=== PATIENT | male | born 1995 | race Caucasian/White ===

== ENCOUNTER 2018-09-24 12:31 | Emergency (ER) | payer MEDICAID ==
[~2018-09-24] VITALS: Ht 175.3 cm; Wt 78.0 kg
[2018-09-24 12:36] VITALS: BP 120/70
[2018-09-24] MEDS ORDERED: INSU100I28 SQ (12:41)
== END 2018-09-24 15:58 | disposition left against medical advice (07) ==
LOC: ER 14:05
DX: M54.5 Low back pain (principal); R00.0 Tachycardia, unspecified
CPT/HCPCS: 99283

== ENCOUNTER 2018-10-08 13:58 | Inpatient (IN) | payer MEDICAID ==
[~2018-10-08] VITALS: Ht 167.6 cm; Wt 48.5 kg
[~2018-10-08 13:58] MED LIST: INSU100I28 SQ
[2018-10-08] MEDS ORDERED: SODIUM CHLORIDE 0.9% 1,000 ML IV ONE (15:14)
[2018-10-08] MEDS ORDERED: DEXTROSE 50% WATER 50ML SYRINGE IV ONE ×4 (15:15→21:30)
[2018-10-08] MEDS ORDERED: SODIUM CHLORIDE 0.9% 1000ML BAG (SEPSIS BOLUS) IV ONE (16:00)
[2018-10-08 16:28] LABS: BASOPHILS % 0.2 % (0.0-2.0); HEMATOCRIT. 26.2 % (42.0-52.0); HEMOGLOBIN. 8.9 g/dL (14.0-18.0); LYMPHOCYTES % 7.2 % (20.0-50.0); MEAN CORPUSCULAR HEMOGLOBIN 28.9 pg (28.0-32.0); MEAN CORPUSCULAR VOLUME 84.9 fL (80.0-94.0); MEAN PLATELET VOLUME 6.4 fl (7.4-10.4); MONOCYTES % 4.8 % (2.0-8.0); NEUTROPHILS % 87.8 % (40.0-76.0); PLATELET 359 x1000/uL (130-400); RED BLOOD CELL COUNT 3.08 mill/uL (4.7-6.1); RED CELL DISTRIBUTION WIDTH 13.6 % (11.6-14.6)
[2018-10-08 16:30] LABS: BG BASE EXCESS 0.3 mmol/L (-2.0-2.0); BG CARBOXYHEMOGLOBIN 0.3 % (0.5-1.5); BG DEOXYHEMOGLOBIN 1.8 % (0.0-5.0); BG FRACTION INSPIRED OXYGEN 21; BG METHEMOGLOBIN 0.3 % (0.0-1.5); BG OXYGEN SATURATION 98.2 % (92.0-98.5); BG OXYHEMOGLOBIN 97.6 % (94.0-97.0); BG PCO2 35.1 mmHg (35.0-45.0); BG PH 7.453 (7.350-7.450); BG PO2 125.3 mmHg (75.0-100.0); BG SAMPLE SITE LEFT BRACHIAL; BG TOTAL HEMOGLOBIN 9.7 g/dL (12.0-18.0); BG VENT MODE ROOM AIR
[2018-10-08 16:33] LABS: INR 1.4; PROTHROMBIN TIME 13.9 sec (9.1-11.1)
[2018-10-08 16:35] LABS: CHLORIDE 99 mEq/L (98-107)
[2018-10-08 16:42] LABS: ETHANOL BLOOD < 10 mg/dL
[2018-10-08 16:46] LABS: CREATINE KINASE 40 IU/L (39-308)
[2018-10-08] MEDS ORDERED: KCL 10MEQ/50ML PREMIX 50 ML IV ONE (17:15)
[2018-10-08] MEDS ORDERED: MAGNESIUM 2 G PREMIX 50 ML IV ONE (17:15)
[2018-10-08] MEDS ORDERED: VANCOMYCIN 1 G PREMIX 200 ML IV SCH (18:00)
[2018-10-08] MEDS ORDERED: PIPERACILLIN/TAZOBACTAM 3.375GM/50ML PREMIX IV ONE (18:00)
[2018-10-08] MEDS ORDERED: PIPERACILLIN/TAZ 3.375G PREMIX 50 ML IV NR (23:00)
[2018-10-09] VITALS (17 sets, daily range): BP systolic 85–123; BP diastolic 58–91
[2018-10-09] MEDS ORDERED: DIPH1TAB24 PO (01:42)
[2018-10-09] MEDS ORDERED: BACL-141 PO (01:42)
[2018-10-09] MEDS ORDERED: IOHEXOL-300 100 ML BOTTLE ONE (02:10)
[2018-10-09] MEDS ORDERED: DEXT 5%/0.45% NACL 1000ML 1,000 ML IV SCH (02:30)
[2018-10-09] MEDS ORDERED: DEXTROSE 50% WATER 50ML SYRINGE IV SCH (02:30)
[2018-10-09] MEDS: DEXTROSE 50% WATER 50ML SYRINGE IV PRN ×3 (03:55→11:10)
[2018-10-09] MEDS ORDERED: IPRATROPIUM/ALBUTEROL 0.5-3(2.5)MG/3ML NEB INH PRN (08:45)
[2018-10-09] MEDS ORDERED: CLONIDINE 0.1MG TABLET PO PRN (08:45)
[2018-10-09] MEDS ORDERED: ONDANSETRON HCL 4MG/2ML INJ IV PRN (08:45)
[2018-10-09] MEDS ORDERED: DIPHENHYDRAMINE 50MG/ML VIAL IV PRN (08:45)
[2018-10-09] MEDS ORDERED: ACETAMINOPHEN 325MG TABLET PO PRN (08:45)
[2018-10-09] MEDS ORDERED: MAGNESIUM/ALUMINUM HYDROXIDE/SIMETHICONE 30ML UDC PO PRN (08:45)
[2018-10-09] MEDS ORDERED: HYDROCODONE/ACETAMINOPHEN 5/325MG TABLET PO PRN (08:45)
[2018-10-09] MEDS ORDERED: VANCOMYCIN 1 G PREMIX 200 ML IV SCH (10:30)
[2018-10-09] MEDS ORDERED: DEXT 10% WATER 1,000 ML IV SCH ×2 (11:00→11:07)
[2018-10-09] MEDS ORDERED: LIDOCAINE HCL 1% 20ML VIAL (Pyxis) INJ ONE (11:22)
[2018-10-09 12:01] LABS: HEMATOCRIT 24.3 % (42.0-52.0); HEMOGLOBIN 8.3 g/dL (14.0-18.0); MEAN CORPUSCULAR HEMOGLOBIN 28.7 pg (28.0-32.0); MEAN CORPUSCULAR VOLUME 84.4 fL (80.0-94.0); PLATELET 342 x1000/uL (130-400); RED BLOOD CELL COUNT 2.88 mill/uL (4.7-6.1); RED CELL DISTRIBUTION WIDTH 13.8 % (11.6-14.6)
[2018-10-09 12:02] LABS: PHOSPHORUS 2.5 mg/dL (2.5-4.9)
[2018-10-09 12:18] LABS: CHLORIDE 104 mEq/L (98-107)
[2018-10-09] MEDS ORDERED: LIDOCAINE HCL 1% 20ML VIAL (Pyxis) INJ INFIL NR (13:45)
[2018-10-09] MEDS ORDERED: POTASSIUM CHLORIDE INJ 40 MEQ in DEXT 5% WATER 500 ML IV NR (14:30)
[2018-10-09 16:05] LABS: INR 1.4; PARTIAL THROMBOPLASTIN TIME 35.8 sec (23.4-31.0); PROTHROMBIN TIME 14.4 sec (9.1-11.1)
[2018-10-09] MEDS: BLOOD SUGAR DIAGNOSTIC STRIP TEST SCH ×2 (19:59→21:57)
[2018-10-09] MEDS ORDERED: INSULIN LISPRO 100 UNITS/ML SUBCUT SCH (20:00)
[2018-10-09] MEDS: DEXT 5%/0.45% NACL 1000ML 1,000 ML IV SCH (20:02)
[2018-10-09] MEDS: INSULIN LISPRO 100 UNITS/ML SUBCUT SCH (21:00)
[2018-10-09 21:04] LABS: CLARITY URINE CLOUDY (CLEAR); COLOR URINE YELLOW (YELLOW); KETONES URINE NEGATIVE (NEGATIVE); LEUKOCYTE ESTERASE URINE 3+ (NEGATIVE); NITRITE URINE NEGATIVE (NEGATIVE); OCCULT BLOOD URINE 2+ (NEGATIVE); PH URINE 5.5 (4.5-8.0); PROTEIN URINE NEGATIVE (NEGATIVE); SPECIFIC GRAVITY URINE 1.027 (1.005-1.030); UROBILINOGEN URINE 0.2 E.U./dL (0.2-1.0)
[2018-10-09 21:14] LABS: *AMPHETAMINES SCREEN URINE PRESUMTIVE POSITIVE (NEGATIVE); *BARBITURATES SCREEN URINE NEGATIVE (NEGATIVE); *BENZODIAZEPINES SCREEN URINE NEGATIVE (NEGATIVE); *COCAINE SCREEN URINE NEGATIVE (NEGATIVE)
[2018-10-09 21:15] LABS: CANNABINOID URINE SCREEN NEGATIVE (NEGATIVE); METHADONE URINE SCREEN NEGATIVE (NEGATIVE); OPIATES URINE SCREEN NEGATIVE (NEGATIVE); PHENCYCLIDINE URINE SCREEN NEGATIVE (NEGATIVE)
[2018-10-09] MEDS: VANCOMYCIN 1 G PREMIX 200 ML IV SCH (22:06)
[2018-10-09] MEDS ORDERED: MAGNESIUM 2 G PREMIX 50 ML IV NR (23:00)
[2018-10-10] VITALS (33 sets, daily range): BP systolic 80–120; BP diastolic 53–88
[2018-10-10] MEDS: PANTOPRAZOLE SODIUM 40 MG/VIAL IV SCH ×2 (01:03→08:53)
[2018-10-10] MEDS: BLOOD SUGAR DIAGNOSTIC STRIP TEST SCH ×10 (01:14→17:56)
[2018-10-10 01:31] LABS: BASOPHILS % 0.1 % (0.0-2.0); EOSINOPHILS % 0.1 % (0.0-5.0); HEMATOCRIT. 24.9 % (42.0-52.0); HEMOGLOBIN. 8.4 g/dL (14.0-18.0); LYMPHOCYTES % 9.8 % (20.0-50.0); MEAN CORPUSCULAR HEMOGLOBIN 28.4 pg (28.0-32.0); MEAN CORPUSCULAR VOLUME 84.3 fL (80.0-94.0); MEAN PLATELET VOLUME 6.2 fl (7.4-10.4); MONOCYTES % 3.9 % (2.0-8.0); NEUTROPHILS % 86.1 % (40.0-76.0); PLATELET 369 x1000/uL (130-400); RED BLOOD CELL COUNT 2.96 mill/uL (4.7-6.1); RED CELL DISTRIBUTION WIDTH 13.9 % (11.6-14.6)
[2018-10-10] MEDS: VANCOMYCIN 1 G PREMIX 200 ML IV SCH ×3 (05:46→21:47)
[2018-10-10] MEDS: INSULIN LISPRO 100 UNITS/ML SUBCUT SCH ×4 (05:51→21:00)
[2018-10-10] MEDS: DEXT 5%/0.45% NACL 1000ML 1,000 ML IV SCH ×2 (06:45→19:30)
[2018-10-10 08:29] LABS: BASOPHILS % 0.3 % (0.0-2.0); EOSINOPHILS % 0.2 % (0.0-5.0); HEMATOCRIT. 24.1 % (42.0-52.0); HEMOGLOBIN. 8.1 g/dL (14.0-18.0); LYMPHOCYTES % 16.7 % (20.0-50.0); MEAN CORPUSCULAR HEMOGLOBIN 28.6 pg (28.0-32.0); MEAN CORPUSCULAR VOLUME 84.8 fL (80.0-94.0); MEAN PLATELET VOLUME 6.1 fl (7.4-10.4); MONOCYTES % 4.9 % (2.0-8.0); NEUTROPHILS % 77.9 % (40.0-76.0); PLATELET 374 x1000/uL (130-400); RED BLOOD CELL COUNT 2.84 mill/uL (4.7-6.1); RED CELL DISTRIBUTION WIDTH 13.6 % (11.6-14.6)
[2018-10-10 08:40] LABS: CHLORIDE 102 mEq/L (98-107)
[2018-10-10 08:49] LABS: LDL CHOLESTEROL 26 mg/dL (5-100)
[2018-10-10 08:50] LABS: HDL CHOLESTEROL 25 mg/dL (40-59)
[2018-10-10] MEDS: TAMSULOSIN HCL 0.4MG SR CAPSULE PO SCH (10:36)
[2018-10-10] MEDS: FLUCONAZOLE 100MG TABLET PO SCH (10:36)
[2018-10-10 10:58] LABS: PHOSPHORUS 2.2 mg/dL (2.5-4.9)
[2018-10-10] MEDS ORDERED: POTASSIUM CHLORIDE 20MEQ TABLET SR PO NR (11:30)
[2018-10-10] MEDS: SUCRALFATE 1 G/10 ML UDC GT SCH ×3 (12:19→21:46)
[2018-10-10] MEDS ORDERED: MAGNESIUM 2 G PREMIX 50 ML IV NR (13:00)
[2018-10-10] MEDS: NYSTATIN POWDER 15GM TOP SCH ×2 (13:18→17:56)
[2018-10-10] MEDS ORDERED: TETANUS AND DIPHTHERIA TOX/PF 0.5ML SYR (ADULT) IM ONE (17:00)
[2018-10-10] MEDS ORDERED: TETANUS, DIPHTHERIA, PERTUSSIS VAC/PF 0.5ML (>7YR OLD) IM ONE (17:15)
[2018-10-10] MEDS: CEFEPIME 2,000 MG in DEXT 5% WATER 100 ML IV SCH (17:56)
[2018-10-10 18:28] LABS: BASOPHILS % 0.2 % (0.0-2.0); EOSINOPHILS % 0.2 % (0.0-5.0); HEMATOCRIT. 22.8 % (42.0-52.0); HEMOGLOBIN. 7.6 g/dL (14.0-18.0); LYMPHOCYTES % 12.4 % (20.0-50.0); MEAN CORPUSCULAR HEMOGLOBIN 28.3 pg (28.0-32.0); MEAN CORPUSCULAR VOLUME 85.1 fL (80.0-94.0); MONOCYTES % 3.9 % (2.0-8.0); NEUTROPHILS % 83.3 % (40.0-76.0); PLATELET 355 x1000/uL (130-400); RED BLOOD CELL COUNT 2.68 mill/uL (4.7-6.1)
[2018-10-10 18:30] LABS: CHLORIDE 101 mEq/L (98-107)
[2018-10-10 20:21] LABS: PHOSPHORUS 2.5 mg/dL (2.5-4.9)
[2018-10-11] VITALS (79 sets, daily range): BP systolic 82–121; BP diastolic 45–85
[2018-10-11] MEDS: BLOOD SUGAR DIAGNOSTIC STRIP TEST SCH ×8 (02:12→21:15)
[2018-10-11] MEDS: DEXT 5%/0.45% NACL 1000ML 1,000 ML IV SCH (04:09)
[2018-10-11 05:59] LABS: BASOPHILS % 1.1 % (0.0-2.0); EOSINOPHILS % 0.2 % (0.0-5.0); HEMATOCRIT. 21.1 % (42.0-52.0); HEMOGLOBIN. 7.1 g/dL (14.0-18.0); LYMPHOCYTES % 15.9 % (20.0-50.0); MEAN CORPUSCULAR HEMOGLOBIN 28.6 pg (28.0-32.0); MEAN CORPUSCULAR VOLUME 85.3 fL (80.0-94.0); MEAN PLATELET VOLUME 6.3 fl (7.4-10.4); MONOCYTES % 3.8 % (2.0-8.0); PLATELET 343 x1000/uL (130-400); RED BLOOD CELL COUNT 2.47 mill/uL (4.7-6.1); RED CELL DISTRIBUTION WIDTH 14.1 % (11.6-14.6)
[2018-10-11] MEDS: CEFEPIME 2,000 MG in DEXT 5% WATER 100 ML IV SCH (06:00)
[2018-10-11 06:11] LABS: CHLORIDE 105 mEq/L (98-107)
[2018-10-11] MEDS: INSULIN LISPRO 100 UNITS/ML SUBCUT SCH ×4 (07:50→21:14)
[2018-10-11] MEDS: NYSTATIN POWDER 15GM TOP SCH ×3 (09:00→17:00)
[2018-10-11] MEDS ORDERED: SODIUM BICARBONATE 4% (2.4MEQ) 5ML VIAL IV ONE (09:34)
[2018-10-11] MEDS ORDERED: LIDOCAINE HCL 1% 20ML VIAL (Pyxis) INJ ONE (09:34)
[2018-10-11] MEDS ORDERED: IOHEXOL-300 100 ML BOTTLE ONE ×2 (09:34→09:43)
[2018-10-11] MEDS: SUCRALFATE 1 G/10 ML UDC GT SCH ×4 (11:23→22:31)
[2018-10-11] MEDS: TAMSULOSIN HCL 0.4MG SR CAPSULE PO SCH (11:23)
[2018-10-11] MEDS: FLUCONAZOLE 100MG TABLET PO SCH (11:23)
[2018-10-11] MEDS: PANTOPRAZOLE SODIUM 40 MG/VIAL IV SCH (11:23)
[2018-10-11] MEDS: VANCOMYCIN 1 G PREMIX 200 ML IV SCH (11:23)
[2018-10-11] MEDS ORDERED: SODIUM CHLORIDE 0.9% 1,000 ML IV SCH (12:45)
[2018-10-11] MEDS ORDERED: MAGNESIUM 2 G PREMIX 50 ML IV NR (14:30)
[2018-10-11] MEDS: LEVOFLOXACIN 750MG PREMIX 150 ML IV SCH (14:46)
[2018-10-11 16:41] LABS: HEMATOCRIT. 22.2 % (42.0-52.0); HEMOGLOBIN. 7.5 g/dL (14.0-18.0); MEAN CORPUSCULAR HEMOGLOBIN 28.4 pg (28.0-32.0); MEAN CORPUSCULAR VOLUME 84.8 fL (80.0-94.0); PLATELET 343 x1000/uL (130-400); RED BLOOD CELL COUNT 2.62 mill/uL (4.7-6.1)
[2018-10-11] MEDS ORDERED: TAMSULOSIN HCL 0.4MG SR CAPSULE PO SCH (17:30)
[2018-10-11 18:10] LABS: PLATELET ESTIMATE NORMAL
[2018-10-11 20:55] LABS: HEMATOCRIT 26.9 % (42.0-52.0)
[2018-10-11 21:00] LABS: INR 1.5; PROTHROMBIN TIME 15.4 sec (9.1-11.1)
[2018-10-11] MEDS: AMOXICILLIN 500 MG CAPSULE PO SCH (22:31)
[2018-10-12] VITALS (38 sets, daily range): BP systolic 86–120; BP diastolic 61–88
[2018-10-12] MEDS ORDERED: DEXTROSE 50% WATER 50ML SYRINGE IV ONE (01:45)
[2018-10-12] MEDS ORDERED: DEXTROSE 50% WATER 50ML SYRINGE IV SCH (02:00)
[2018-10-12] MEDS ORDERED: DEXT 10% WATER 1,000 ML IV SCH ×2 (03:00)
[2018-10-12 06:08] LABS: BASOPHILS % 0.4 % (0.0-2.0); EOSINOPHILS % 0.1 % (0.0-5.0); HEMATOCRIT. 25.3 % (42.0-52.0); HEMOGLOBIN. 8.6 g/dL (14.0-18.0); LYMPHOCYTES % 16.6 % (20.0-50.0); MEAN CORPUSCULAR HEMOGLOBIN 28.5 pg (28.0-32.0); MEAN CORPUSCULAR VOLUME 83.5 fL (80.0-94.0); MEAN PLATELET VOLUME 6.2 fl (7.4-10.4); MONOCYTES % 4.4 % (2.0-8.0); NEUTROPHILS % 78.5 % (40.0-76.0); PLATELET 289 x1000/uL (130-400); RED BLOOD CELL COUNT 3.03 mill/uL (4.7-6.1); RED CELL DISTRIBUTION WIDTH 14.5 % (11.6-14.6)
[2018-10-12 06:25] LABS: CHLORIDE 104 mEq/L (98-107)
[2018-10-12 06:47] LABS: HAPTOGLOBIN 103 mg/dL (30-200)
[2018-10-12 08:18] LABS: HIV SCREEN 4G Non Reactive (Non Reactive)
[2018-10-12] MEDS ORDERED: POTASSIUM CHLORIDE 20MEQ/PACKET PO NR (08:30)
[2018-10-12] MEDS: SUCRALFATE 1 G/10 ML UDC GT SCH ×3 (08:53→18:31)
[2018-10-12] MEDS: FLUCONAZOLE 100MG TABLET PO SCH (08:53)
[2018-10-12] MEDS: NYSTATIN POWDER 15GM TOP SCH ×3 (08:54→18:34)
[2018-10-12] MEDS: TAMSULOSIN HCL 0.4MG SR CAPSULE PO SCH (08:54)
[2018-10-12] MEDS: PANTOPRAZOLE SODIUM 40 MG/VIAL IV SCH (08:54)
[2018-10-12] MEDS: AMOXICILLIN 500 MG CAPSULE PO SCH ×2 (08:54→21:42)
[2018-10-12] MEDS ORDERED: DEXTROSE 5% WATER 1,000 ML IV SCH (12:30)
[2018-10-12] MEDS: BLOOD SUGAR DIAGNOSTIC STRIP TEST SCH ×3 (12:31→21:42)
[2018-10-12] MEDS: LEVOFLOXACIN 750MG PREMIX 150 ML IV SCH (13:56)
[2018-10-12] MEDS: INSULIN LISPRO 100 UNITS/ML SUBCUT SCH ×2 (17:50→18:31)
[2018-10-12 19:39] LABS: HEMATOCRIT 28.3 % (42.0-52.0); HEMOGLOBIN 9.4 g/dL (14.0-18.0)
[2018-10-12] MEDS ORDERED: INSULIN LISPRO (CUSTOM DOSE) 100 UNITS/ML SUBCUT SCH (21:00)
[2018-10-12] MEDS: CLONIDINE 0.1MG TABLET PO SCH (21:00)
[2018-10-12] MEDS: INSULIN LISPRO (CUSTOM DOSE) 100 UNITS/ML SUBCUT SCH (21:53)
[2018-10-13] VITALS (20 sets, daily range): BP systolic 85–115; BP diastolic 64–78
[2018-10-13] MEDS: SUCRALFATE 1 G/10 ML UDC GT SCH ×4 (00:29→17:23)
[2018-10-13] MEDS: INSULIN LISPRO (CUSTOM DOSE) 100 UNITS/ML SUBCUT SCH ×3 (05:46→21:00)
[2018-10-13] MEDS: BLOOD SUGAR DIAGNOSTIC STRIP TEST SCH ×4 (05:47→21:00)
[2018-10-13 05:55] LABS: HEMATOCRIT. 26.3 % (42.0-52.0); HEMOGLOBIN. 9.1 g/dL (14.0-18.0); MEAN CORPUSCULAR HEMOGLOBIN 28.9 pg (28.0-32.0); MEAN CORPUSCULAR VOLUME 82.9 fL (80.0-94.0); MEAN PLATELET VOLUME 6.2 fl (7.4-10.4); PLATELET 295 x1000/uL (130-400); RED BLOOD CELL COUNT 3.17 mill/uL (4.7-6.1); RED CELL DISTRIBUTION WIDTH 14.1 % (11.6-14.6)
[2018-10-13 06:43] LABS: CHLORIDE 100 mEq/L (98-107)
[2018-10-13] MEDS: TAMSULOSIN HCL 0.4MG SR CAPSULE PO SCH (08:08)
[2018-10-13] MEDS: GABAPENTIN 100MG CAPSULE PO SCH ×2 (08:09→17:23)
[2018-10-13] MEDS: FLUCONAZOLE 100MG TABLET PO SCH (08:09)
[2018-10-13] MEDS: AMOXICILLIN 500 MG CAPSULE PO SCH (08:09)
[2018-10-13] MEDS: PANTOPRAZOLE SODIUM 40 MG/VIAL IV SCH (08:09)
[2018-10-13] MEDS: MAGNESIUM OXIDE 400MG TABLET PO SCH ×2 (08:11→17:23)
[2018-10-13] MEDS: LIPASE/PROTEASE/AMYLASE 4,200/14,200/24,600 UNITS CAP DR PO SCH ×3 (08:11→17:23)
[2018-10-13] MEDS: NYSTATIN POWDER 15GM TOP SCH ×3 (08:18→17:25)
[2018-10-13 09:52] LABS: ATYPICAL LYMPHOCYTES 1
[2018-10-13 09:54] LABS: PLATELET ESTIMATE NORMAL
[2018-10-13] MEDS ORDERED: INSULIN LISPRO 100 UNITS/ML SUBCUT NR (12:45)
[2018-10-13] MEDS: LEVOFLOXACIN 750MG PREMIX 150 ML IV SCH (12:54)
[2018-10-13 17:09] LABS: CLARITY URINE CLEAR (CLEAR); COLOR URINE YELLOW (YELLOW); KETONES URINE NEGATIVE (NEGATIVE); LEUKOCYTE ESTERASE URINE 2+ (NEGATIVE); NITRITE URINE NEGATIVE (NEGATIVE); OCCULT BLOOD URINE NEGATIVE (NEGATIVE); PH URINE 5.5 (4.5-8.0); PROTEIN URINE NEGATIVE (NEGATIVE); UROBILINOGEN URINE 0.2 E.U./dL (0.2-1.0)
[2018-10-13] MEDS ORDERED: CEPHALEXIN 250MG CAPSULE PO SCH (19:00)
[2018-10-13] MEDS: CLONIDINE 0.1MG TABLET PO SCH (21:00)
[2018-10-14] VITALS: BP 91/63
[2018-10-14] MEDS: SUCRALFATE 1 G/10 ML UDC GT SCH ×4 (00:27→18:00)
[2018-10-14] MEDS: CEPHALEXIN 250MG CAPSULE PO SCH ×5 (03:00→18:00)
[2018-10-14 04:00] VITALS: BP 98/66
[2018-10-14] MEDS: BLOOD SUGAR DIAGNOSTIC STRIP TEST SCH ×4 (06:52→21:00)
[2018-10-14] MEDS: INSULIN LISPRO (CUSTOM DOSE) 100 UNITS/ML SUBCUT SCH ×4 (06:55→21:00)
[2018-10-14] MEDS: LIPASE/PROTEASE/AMYLASE 4,200/14,200/24,600 UNITS CAP DR PO SCH ×4 (07:40→17:40)
[2018-10-14 08:00] VITALS: BP 103/66
[2018-10-14] MEDS: GABAPENTIN 100MG CAPSULE PO SCH ×3 (09:00→17:00)
[2018-10-14] MEDS: FLUCONAZOLE 100MG TABLET PO SCH ×2 (09:00→10:42)
[2018-10-14] MEDS: MAGNESIUM OXIDE 400MG TABLET PO SCH ×3 (09:00→17:00)
[2018-10-14] MEDS: NYSTATIN POWDER 15GM TOP SCH ×3 (09:00→17:00)
[2018-10-14] MEDS: PANTOPRAZOLE SODIUM 40 MG/VIAL IV SCH ×2 (09:00→10:42)
[2018-10-14] MEDS: TAMSULOSIN HCL 0.4MG SR CAPSULE PO SCH ×2 (09:00→10:42)
[2018-10-14] MEDS ORDERED: INSULIN GLARGINE UD 100 UNITS/ML SYR SUBCUT SCH (10:00)
[2018-10-14 11:46] VITALS: BP 95/59
[2018-10-14 16:00] VITALS: BP 99/71
[2018-10-14] MEDS: THIAMINE HCL 100MG TABLET PO SCH (17:00)
[2018-10-14] MEDS: CHOLECALCIFEROL (D3) 1000 UNIT TABLET PO SCH (17:00)
[2018-10-14] MEDS: FOLIC ACID 1MG TABLET PO SCH (17:00)
[2018-10-14] MEDS: DEXTROSE 50% WATER 50ML SYRINGE IV PRN (19:32)
[2018-10-14 20:00] VITALS: BP 98/50
[2018-10-14] MEDS: METOCLOPRAMIDE HCL 10MG TABLET PO SCH (21:00)
[2018-10-15] MEDS: CEPHALEXIN 250MG CAPSULE PO SCH ×4 (00:02→17:18)
[2018-10-15] MEDS: SUCRALFATE 1 G/10 ML UDC GT SCH ×4 (00:02→17:15)
[2018-10-15 04:00] VITALS: BP 95/52
[2018-10-15] MEDS: METOCLOPRAMIDE HCL 10MG TABLET PO SCH ×4 (06:42→22:04)
[2018-10-15] MEDS: BLOOD SUGAR DIAGNOSTIC STRIP TEST SCH ×4 (06:47→22:04)
[2018-10-15 07:04] LABS: HEMATOCRIT. 24.8 % (42.0-52.0); HEMOGLOBIN. 8.4 g/dL (14.0-18.0); MEAN CORPUSCULAR HEMOGLOBIN 28.5 pg (28.0-32.0); MEAN CORPUSCULAR VOLUME 83.7 fL (80.0-94.0); MEAN PLATELET VOLUME 6.1 fl (7.4-10.4); PLATELET 198 x1000/uL (130-400); RED BLOOD CELL COUNT 2.96 mill/uL (4.7-6.1); RED CELL DISTRIBUTION WIDTH 14.5 % (11.6-14.6)
[2018-10-15] MEDS: INSULIN LISPRO (CUSTOM DOSE) 100 UNITS/ML SUBCUT SCH ×4 (07:04→22:06)
[2018-10-15 07:07] LABS: CHLORIDE 100 mEq/L (98-107)
[2018-10-15 08:00] VITALS: BP 97/60
[2018-10-15] MEDS: TAMSULOSIN HCL 0.4MG SR CAPSULE PO SCH (09:00)
[2018-10-15] MEDS: MAGNESIUM OXIDE 400MG TABLET PO SCH ×2 (09:37→17:15)
[2018-10-15] MEDS: FOLIC ACID 1MG TABLET PO SCH (09:37)
[2018-10-15] MEDS: FLUCONAZOLE 100MG TABLET PO SCH (09:37)
[2018-10-15] MEDS: LIPASE/PROTEASE/AMYLASE 4,200/14,200/24,600 UNITS CAP DR PO SCH ×3 (09:37→17:15)
[2018-10-15] MEDS: GABAPENTIN 100MG CAPSULE PO SCH ×2 (09:37→17:15)
[2018-10-15] MEDS: PANTOPRAZOLE SODIUM 40 MG/VIAL IV SCH (09:37)
[2018-10-15] MEDS: THIAMINE HCL 100MG TABLET PO SCH (09:38)
[2018-10-15] MEDS: CHOLECALCIFEROL (D3) 1000 UNIT TABLET PO SCH (09:38)
[2018-10-15] MEDS: NYSTATIN POWDER 15GM TOP SCH ×3 (09:39→17:15)
[2018-10-15] MEDS: INSULIN GLARGINE UD 100 UNITS/ML SYR SUBCUT SCH ×2 (10:30→17:17)
[2018-10-15] MEDS ORDERED: ERGOCALCIFEROL 50000UNITS CAPSULE PO SCH (11:00)
[2018-10-15 12:00] VITALS: BP 97/71
[2018-10-15 14:15] LABS: HGB A 98.1 % (96.4-98.8); HGB A2 1.9 % (1.8-3.2); HGB SOLUBILITY Negative (Negative)
[2018-10-15 16:00] VITALS: BP 92/60
[2018-10-15 20:00] VITALS: BP 99/54
[2018-10-16] VITALS: BP 110/61
[2018-10-16] MEDS: SUCRALFATE 1 G/10 ML UDC GT SCH ×4 (00:13→17:59)
[2018-10-16] MEDS: CEPHALEXIN 250MG CAPSULE PO SCH ×4 (00:13→17:58)
[2018-10-16 04:00] VITALS: BP 92/53
[2018-10-16] MEDS: METOCLOPRAMIDE HCL 10MG TABLET PO SCH ×2 (06:15→13:57)
[2018-10-16] MEDS: BLOOD SUGAR DIAGNOSTIC STRIP TEST SCH ×4 (06:17→21:34)
[2018-10-16] MEDS: INSULIN LISPRO (CUSTOM DOSE) 100 UNITS/ML SUBCUT SCH ×4 (06:17→21:34)
[2018-10-16 06:57] LABS: CHLORIDE 99 mEq/L (98-107)
[2018-10-16 08:00] VITALS: BP 109/57
[2018-10-16] MEDS: GABAPENTIN 100MG CAPSULE PO SCH ×2 (09:56→17:58)
[2018-10-16] MEDS: FLUCONAZOLE 100MG TABLET PO SCH (09:56)
[2018-10-16] MEDS: CHOLECALCIFEROL (D3) 1000 UNIT TABLET PO SCH (09:56)
[2018-10-16] MEDS: TAMSULOSIN HCL 0.4MG SR CAPSULE PO SCH (09:56)
[2018-10-16] MEDS: THIAMINE HCL 100MG TABLET PO SCH (09:56)
[2018-10-16] MEDS: PANTOPRAZOLE SODIUM 40 MG/VIAL IV SCH (09:56)
[2018-10-16] MEDS: LIPASE/PROTEASE/AMYLASE 4,200/14,200/24,600 UNITS CAP DR PO SCH ×3 (09:57→17:40)
[2018-10-16] MEDS: NYSTATIN POWDER 15GM TOP SCH ×3 (09:57→18:06)
[2018-10-16] MEDS: MAGNESIUM OXIDE 400MG TABLET PO SCH ×2 (09:57→17:58)
[2018-10-16] MEDS: FOLIC ACID 1MG TABLET PO SCH (09:57)
[2018-10-16] MEDS: INSULIN GLARGINE UD 100 UNITS/ML SYR SUBCUT SCH (09:58)
[2018-10-16 12:15] VITALS: BP 97/77
[2018-10-16 12:44] LABS: PLATELET ESTIMATE NORMAL
[2018-10-16 16:03] VITALS: BP 91/47
[2018-10-16] MEDS: INSULIN LISPRO 100 UNITS/ML SUBCUT SCH ×2 (17:10→18:01)
[2018-10-16] MEDS: METOCLOPRAMIDE 10MG/10 ML UDC PO SCH ×2 (17:59→21:30)
[2018-10-16 20:00] VITALS: BP 92/55
[2018-10-17] MEDS: CEPHALEXIN 250MG CAPSULE PO SCH ×4 (00:30→17:34)
[2018-10-17] MEDS: SUCRALFATE 1 G/10 ML UDC GT SCH ×4 (00:30→17:34)
[2018-10-17 00:31] VITALS: BP 91/46
[2018-10-17 04:00] VITALS: BP 101/62
[2018-10-17] MEDS: INSULIN LISPRO (CUSTOM DOSE) 100 UNITS/ML SUBCUT SCH ×3 (06:30→17:10)
[2018-10-17] MEDS: METOCLOPRAMIDE 10MG/10 ML UDC PO SCH ×3 (06:30→17:10)
[2018-10-17] MEDS: BLOOD SUGAR DIAGNOSTIC STRIP TEST SCH ×3 (06:31→17:10)
[2018-10-17] MEDS: INSULIN LISPRO 100 UNITS/ML SUBCUT SCH ×2 (06:31→12:54)
[2018-10-17 07:13] LABS: CHLORIDE 102 mEq/L (98-107)
[2018-10-17 07:14] LABS: HEMATOCRIT. 26.1 % (42.0-52.0); HEMOGLOBIN. 8.6 g/dL (14.0-18.0); MEAN CORPUSCULAR VOLUME 85.1 fL (80.0-94.0); MEAN PLATELET VOLUME 6.7 fl (7.4-10.4); PLATELET 218 x1000/uL (130-400); RED BLOOD CELL COUNT 3.07 mill/uL (4.7-6.1); RED CELL DISTRIBUTION WIDTH 14.6 % (11.6-14.6)
[2018-10-17 08:00] VITALS: BP 100/53
[2018-10-17] MEDS: CHOLECALCIFEROL (D3) 1000 UNIT TABLET PO SCH (09:01)
[2018-10-17] MEDS: THIAMINE HCL 100MG TABLET PO SCH (09:01)
[2018-10-17] MEDS: GABAPENTIN 100MG CAPSULE PO SCH ×2 (09:01→17:00)
[2018-10-17] MEDS: MAGNESIUM OXIDE 400MG TABLET PO SCH ×2 (09:01→17:00)
[2018-10-17] MEDS: LIPASE/PROTEASE/AMYLASE 4,200/14,200/24,600 UNITS CAP DR PO SCH ×3 (09:01→17:34)
[2018-10-17] MEDS: TAMSULOSIN HCL 0.4MG SR CAPSULE PO SCH (09:02)
[2018-10-17] MEDS: FOLIC ACID 1MG TABLET PO SCH (09:02)
[2018-10-17] MEDS: PANTOPRAZOLE SODIUM 40 MG/VIAL IV SCH (09:02)
[2018-10-17] MEDS: FLUCONAZOLE 100MG TABLET PO SCH (09:02)
[2018-10-17] MEDS: NYSTATIN POWDER 15GM TOP SCH ×3 (09:03→17:33)
[2018-10-17] MEDS: INSULIN GLARGINE UD 100 UNITS/ML SYR SUBCUT SCH (11:18)
[2018-10-17 12:00] VITALS: BP 90/55
[2018-10-17] MEDS ORDERED: INSULIN LISPRO 100 UNITS/ML SUBCUT SCH (17:10)
[2018-10-17 17:41] VITALS: BP 106/61
[2018-10-17 17:52] LABS: PLATELET ESTIMATE NORMAL
[2018-10-20 04:13] LABS: OVA & PARASITE EXAM Final report (.)
[2018-10-22 13:07] LABS: SACCHAROMYCES CEREVISIAE IGG 89.2 Units (0.0-24.9); SACCHAROMYCES CEREVISIAE IGM 196.5 Units (0.0-24.9)
[2018-10-22 14:19] LABS: ATYPICAL pANCA <1:20 titer (Neg:<1:20)
== END 2018-10-17 18:10 | disposition home health service (06) | DRG 710 ==
LOC: ER 13:58 → 3WST 17:44 → ENRESERV 21:04 → CVICU 10-10 09:56 → UNDODISIN 10-11 12:20 → 8WST 10-13 12:30
PROVIDERS: ADMIT Internal Medicine; ATTEND Internal Medicine
PROC: 0J990ZZ Drainage of Buttock Subcutaneous Tissue and Fascia, Open Approach (ICD-10-PCS; principal; 2018-10-10)
PROC: 02HV33Z Insertion of Infusion Device into Superior Vena Cava, Percutaneous Approach (ICD-10-PCS; 2018-10-10)
PROC: B548ZZA Ultrasonography of Superior Vena Cava, Guidance (ICD-10-PCS; 2018-10-10)
PROC: 06H03DZ Insertion of Intraluminal Device into Inferior Vena Cava, Percutaneous Approach (ICD-10-PCS; 2018-10-11)
PROC: 30233N1 Transfusion of Nonautologous Red Blood Cells into Peripheral Vein, Percutaneous Approach (ICD-10-PCS; 2018-10-11)
DX: A41.9 Sepsis, unspecified organism (principal); G93.41 Metabolic encephalopathy; E43 Unspecified severe protein-calorie malnutrition; K92.0 Hematemesis; I82.402 Acute embolism and thrombosis of unspecified deep veins of left lower extremity; R64 Cachexia; E10.649 Type 1 diabetes mellitus with hypoglycemia without coma; E10.40 Type 1 diabetes mellitus with diabetic neuropathy, unspecified; L02.31 Cutaneous abscess of buttock; K90.9 Intestinal malabsorption, unspecified; R35.8 Other polyuria; I82.411 Acute embolism and thrombosis of right femoral vein; E83.42 Hypomagnesemia; E10.42 Type 1 diabetes mellitus with diabetic polyneuropathy; N39.0 Urinary tract infection, site not specified; E10.65 Type 1 diabetes mellitus with hyperglycemia; F19.10 Other psychoactive substance abuse, uncomplicated; I10 Essential (primary) hypertension; E10.43 Type 1 diabetes mellitus with diabetic autonomic (poly)neuropathy; E87.6 Hypokalemia; N32.0 Bladder-neck obstruction; F15.10 Other stimulant abuse, uncomplicated; F31.9 Bipolar disorder, unspecified; D64.9 Anemia, unspecified; K52.9 Noninfective gastroenteritis and colitis, unspecified; Z68.1 Body mass index [BMI] 19.9 or less, adult; Z79.4 Long term (current) use of insulin; Q54.9 Hypospadias, unspecified; Z87.440 Personal history of urinary (tract) infections; Z91.19 Patient's noncompliance with other medical treatment and regimen
CPT/HCPCS: 36415; 36569; 36600; 37191; 71045; 74177; 76770; 76937; 80048; 80061; 80076; 80202; 80305; 82140; 82248; 82270; 82306; 82375; 82380; 82533; 82550; 82668; 82705; 82805; 82941; 82962; 83010; 83021; 83036; 83605; 83615; 83735; 83930; 83935; 84100; 84145; 84300; 84443; 85007; 85014; 85018; 85027; 85044; 85384; 85660; 86256; 86671; 86850; 86900; 86920; 87015; 87045; 87070; 87077; 87177; 87186; 87209; 87389; 87427; 87449; 89055; 90715; 93005; 93970; 96365; 96366; 96375; 97110; 97162; 97166; 97535; 99285; A6261; C1725; C1769; C1880; C9113; J0692; J1644; J1815; J1956; J2405; J2543; J3370; J3475; J3480; J3490; J7030; J7040; J7050; J7060; J7070; J8597; P9016; Q9967; A4315

== ENCOUNTER 2018-10-24 15:55 | Inpatient (IN) | payer MEDICAID ==
[~2018-10-24] VITALS: Ht 162.6 cm; Wt 51.3 kg
[~2018-10-24 15:55] MED LIST changes: +BACL-141 PO; +DIPH1TAB24 PO; +ETOMIDATE 2MG/ML 10ML VIAL IV ONE; +SUCCINYLCHOLINE CHLORIDE 200MG/10ML IV ONE
[2018-10-24] MEDS ORDERED: LORAZEPAM 2MG/ML CPJ IV ONE (16:15)
[2018-10-24] MEDS ORDERED: MIDAZOLAM HCL 50 MG in DEXTROSE 5% WATER 40 ML IV ONE (16:15)
[2018-10-24] MEDS ORDERED: LEVETIRACETAM 1000MG/100ML 100 ML IV ONE (16:15)
[2018-10-24] MEDS ORDERED: ETOMIDATE 2MG/ML 10ML VIAL IV ONE (16:15)
[2018-10-24] MEDS ORDERED: SUCCINYLCHOLINE CHLORIDE 200MG/10ML IV ONE (16:15)
[2018-10-24] MEDS ORDERED: SODIUM CHLORIDE 0.9% 1000ML BAG (SEPSIS BOLUS) IV ONE (16:15)
[2018-10-24 17:14] LABS: BG BASE EXCESS 14.2 mmol/L (-2.0-2.0); BG CARBOXYHEMOGLOBIN 0.3 % (0.5-1.5); BG DEOXYHEMOGLOBIN 0.8 % (0.0-5.0); BG FRACTION INSPIRED OXYGEN 100; BG HCO3 ACT 36.4 mmol/L (22.0-26.0); BG METHEMOGLOBIN 0.4 % (0.0-1.5); BG OXYGEN SATURATION 99.2 % (92.0-98.5); BG OXYHEMOGLOBIN 98.5 % (94.0-97.0); BG PH 7.623 (7.350-7.450); BG PO2 589.9 mmHg (75.0-100.0); BG SAMPLE SITE RIGHT RADIAL; BG TIDAL VOLUME(mL) 400 mL; BG TOTAL HEMOGLOBIN 9.9 g/dL (12.0-18.0); BG VENT MODE VENT - A/C; BG VENT RATE 14 set
[2018-10-24 17:47] LABS: CLARITY URINE CLEAR (CLEAR); COLOR URINE YELLOW (YELLOW); KETONES URINE NEGATIVE (NEGATIVE); LEUKOCYTE ESTERASE URINE NEGATIVE (NEGATIVE); NITRITE URINE NEGATIVE (NEGATIVE); OCCULT BLOOD URINE TRACE (NEGATIVE); PH URINE 5.5 (4.5-8.0); PROTEIN URINE NEGATIVE (NEGATIVE); SPECIFIC GRAVITY URINE 1.027 (1.005-1.030); UROBILINOGEN URINE 0.2 E.U./dL (0.2-1.0)
[2018-10-24 17:49] LABS: BASOPHILS % 1.2 % (0.0-2.0); EOSINOPHILS % 0.3 % (0.0-5.0); HEMATOCRIT. 28.5 % (42.0-52.0); HEMOGLOBIN. 9.6 g/dL (14.0-18.0); LYMPHOCYTES % 22.2 % (20.0-50.0); MEAN CORPUSCULAR VOLUME 83.2 fL (80.0-94.0); MEAN PLATELET VOLUME 6.7 fl (7.4-10.4); MONOCYTES % 4.4 % (2.0-8.0); NEUTROPHILS % 71.9 % (40.0-76.0); PLATELET 368 x1000/uL (130-400); RED BLOOD CELL COUNT 3.42 mill/uL (4.7-6.1); RED CELL DISTRIBUTION WIDTH 14.1 % (11.6-14.6)
[2018-10-24 17:55] LABS: INR 1.2; PARTIAL THROMBOPLASTIN TIME 27.9 sec (23.4-31.0); PROTHROMBIN TIME 12.2 sec (9.1-11.1)
[2018-10-24 17:56] LABS: CHLORIDE 99 mEq/L (98-107)
[2018-10-24 18:03] LABS: ETHANOL BLOOD < 10 mg/dL
[2018-10-24 18:17] LABS: *AMPHETAMINES SCREEN URINE PRESUMTIVE POSITIVE (NEGATIVE); *BARBITURATES SCREEN URINE NEGATIVE (NEGATIVE); *BENZODIAZEPINES SCREEN URINE NEGATIVE (NEGATIVE); *COCAINE SCREEN URINE NEGATIVE (NEGATIVE); METHADONE URINE SCREEN NEGATIVE (NEGATIVE)
[2018-10-24 18:18] LABS: CANNABINOID URINE SCREEN NEGATIVE (NEGATIVE); OPIATES URINE SCREEN NEGATIVE (NEGATIVE); PHENCYCLIDINE URINE SCREEN NEGATIVE (NEGATIVE)
[2018-10-24] MEDS ORDERED: DEXTROSE 50% WATER 50ML SYRINGE IV ONE ×2 (18:45→18:53)
[2018-10-24] MEDS: LEVETIRACETAM 500 MG in SODIUM CHLORIDE 0.9% 100 ML IV SCH (19:30)
[2018-10-24] MEDS ORDERED: ONDANSETRON HCL 4MG/2ML INJ IV PRN (19:30)
[2018-10-24] MEDS ORDERED: CEFTRIAXONE 1 G PREMIX 50 ML IV ONE (19:45)
[2018-10-24] MEDS ORDERED: KCL 20MEQ/100ML PREMIX 100 ML IV ONE (19:45)
[2018-10-24] MEDS ORDERED: POTASSIUM CHLORIDE INJ 40 MEQ in DEXT 5% WATER 250 ML IV NR (20:00)
[2018-10-24] MEDS: SODIUM CHLORIDE 0.9% 1,000 ML IV SCH (20:04)
[2018-10-24] MEDS: INSULIN LISPRO 100 UNITS/ML SUBCUT SCH (21:00)
[2018-10-24] MEDS: BLOOD SUGAR DIAGNOSTIC STRIP TEST SCH (21:00)
[2018-10-24] MEDS ORDERED: LORAZEPAM 2MG/ML CPJ IV PRN (21:22)
[2018-10-24] MEDS ORDERED: POTASSIUM CHLORIDE INJ 40 MEQ in DEXT 5% WATER 250 ML IV ONE (23:30)
[2018-10-25] VITALS (11 sets, daily range): BP systolic 91–147; BP diastolic 49–111
[2018-10-25] MEDS: DEXTROSE 50% WATER 50ML SYRINGE IV PRN ×2 (01:16→06:59)
[2018-10-25] MEDS: SODIUM CHLORIDE 0.9% 1,000 ML IV SCH (05:30)
[2018-10-25 06:57] LABS: BASOPHILS % 0.7 % (0.0-2.0); EOSINOPHILS % 0.7 % (0.0-5.0); HEMATOCRIT. 27.6 % (42.0-52.0); HEMOGLOBIN. 9.6 g/dL (14.0-18.0); LYMPHOCYTES % 22.6 % (20.0-50.0); MEAN CORPUSCULAR HEMOGLOBIN 28.8 pg (28.0-32.0); MEAN CORPUSCULAR VOLUME 82.8 fL (80.0-94.0); MEAN PLATELET VOLUME 6.6 fl (7.4-10.4); MONOCYTES % 8.2 % (2.0-8.0); NEUTROPHILS % 67.8 % (40.0-76.0); PLATELET 308 x1000/uL (130-400); RED BLOOD CELL COUNT 3.33 mill/uL (4.7-6.1); RED CELL DISTRIBUTION WIDTH 14.6 % (11.6-14.6)
[2018-10-25 06:59] LABS: CHLORIDE 104 mEq/L (98-107)
[2018-10-25] MEDS ORDERED: MIDAZOLAM HCL 50 MG in DEXTROSE 5% WATER 40 ML IV ONE (07:00)
[2018-10-25] MEDS ORDERED: LEVETIRACETAM 500MG PREMIX 100 ML IV SCH (07:30)
[2018-10-25] MEDS: LEVETIRACETAM 500 MG in SODIUM CHLORIDE 0.9% 100 ML IV SCH ×2 (07:30→22:45)
[2018-10-25] MEDS: INSULIN LISPRO 100 UNITS/ML SUBCUT SCH ×4 (08:20→21:00)
[2018-10-25] MEDS: BLOOD SUGAR DIAGNOSTIC STRIP TEST SCH ×4 (09:38→21:22)
[2018-10-25] MEDS ORDERED: DEXT 5%/0.9% NACL 1,000 ML IV SCH (09:45)
[2018-10-25] MEDS: POTASSIUM CHLORIDE INJ 40 MEQ in DEXT 5% WATER 250 ML IV SCH ×3 (10:11→11:13)
[2018-10-25 10:57] LABS: BG CARBOXYHEMOGLOBIN 0.3 % (0.5-1.5); BG DEOXYHEMOGLOBIN 0.8 % (0.0-5.0); BG FRACTION INSPIRED OXYGEN 45; BG METHEMOGLOBIN 0.1 % (0.0-1.5); BG OXYGEN SATURATION 99.2 % (92.0-98.5); BG OXYHEMOGLOBIN 98.8 % (94.0-97.0); BG PCO2 35.7 mmHg (35.0-45.0); BG PH 7.528 (7.350-7.450); BG PO2 287.2 mmHg (75.0-100.0); BG SAMPLE SITE LEFT RADIAL; BG TIDAL VOLUME(mL) 400 mL; BG TOTAL HEMOGLOBIN 8.7 g/dL (12.0-18.0); BG VENT MODE VENT - A/C; BG VENT RATE 14 set
[2018-10-25] MEDS ORDERED: DEXTROSE 50% WATER 50ML SYRINGE IV PRN ×2 (11:30)
[2018-10-25] MEDS ORDERED: POTASSIUM CHLORIDE INJ 40 MEQ in DEXT 5% WATER 250 ML IV SCH (11:30)
[2018-10-25] MEDS ORDERED: NOREPINEPHRINE 8 MG in DEXT 5% WATER 242 ML IV PRN ×2 (11:30→21:00)
[2018-10-25] MEDS ORDERED: DEXT 10%/0.45% NACL 1,000 ML IV SCH ×3 (11:30→21:30)
[2018-10-25] MEDS: PIPERACILLIN/TAZ 3.375G PREMIX 50 ML IV SCH ×3 (12:00→23:48)
[2018-10-25] MEDS ORDERED: VANCOMYCIN 1 G PREMIX 200 ML IV SCH (12:30)
[2018-10-25] MEDS ORDERED: PIPERACILLIN/TAZ 3.375G PREMIX 50 ML IV ONE (12:30)
[2018-10-25] MEDS ORDERED: NOREPINEPHRINE 4MG/250ML PMX 250 ML IV NR (13:00)
[2018-10-25] MEDS ORDERED: POTASSIUM CHLORIDE INJ 40 MEQ in DEXT 5% WATER 250 ML IV ONE (14:00)
[2018-10-25] MEDS: PROPOFOL 10MG/ML 100ML 100 ML IV PRN ×2 (14:21→21:26)
[2018-10-25] MEDS ORDERED: MAGNESIUM 2 G PREMIX 50 ML IV NR (15:30)
[2018-10-25] MEDS: IPRATROPIUM/ALBUTEROL 0.5-3(2.5)MG/3ML NEB HHN SCH ×3 (15:46→22:06)
[2018-10-25] MEDS ORDERED: MAGNESIUM 4 G PREMIX 100 ML IV NR (18:30)
[2018-10-25] MEDS: VANCOMYCIN 1250MG in DEXTROSE 5% WATER 250ML IV SCH (22:45)
[2018-10-26] VITALS (44 sets, daily range): BP systolic 84–135; BP diastolic 45–78
[2018-10-26] MEDS: INSULIN LISPRO 100 UNITS/ML SUBCUT SCH ×3 (00:20→13:20)
[2018-10-26] MEDS: DEXT 10%/0.45% NACL 1,000 ML IV SCH ×3 (01:16→21:47)
[2018-10-26] MEDS: IPRATROPIUM/ALBUTEROL 0.5-3(2.5)MG/3ML NEB HHN SCH ×4 (01:32→21:06)
[2018-10-26] MEDS: PIPERACILLIN/TAZ 3.375G PREMIX 50 ML IV SCH ×3 (05:23→18:13)
[2018-10-26] MEDS: VANCOMYCIN 1250MG in DEXTROSE 5% WATER 250ML IV SCH (05:24)
[2018-10-26] MEDS: PROPOFOL 10MG/ML 100ML 100 ML IV PRN ×2 (06:24→20:16)
[2018-10-26 06:33] LABS: BASOPHILS % 0.9 % (0.0-2.0); EOSINOPHILS % 0.8 % (0.0-5.0); HEMATOCRIT. 26.1 % (42.0-52.0); HEMOGLOBIN. 8.9 g/dL (14.0-18.0); LYMPHOCYTES % 26.4 % (20.0-50.0); MEAN CORPUSCULAR HEMOGLOBIN 28.9 pg (28.0-32.0); MEAN CORPUSCULAR VOLUME 84.6 fL (80.0-94.0); MONOCYTES % 7.5 % (2.0-8.0); NEUTROPHILS % 64.4 % (40.0-76.0); PLATELET 225 x1000/uL (130-400); RED BLOOD CELL COUNT 3.09 mill/uL (4.7-6.1); RED CELL DISTRIBUTION WIDTH 14.7 % (11.6-14.6)
[2018-10-26 07:36] LABS: CHLORIDE 104 mEq/L (98-107)
[2018-10-26] MEDS: BLOOD SUGAR DIAGNOSTIC STRIP TEST SCH ×3 (08:37→18:02)
[2018-10-26] MEDS: MIDODRINE HCL 5MG TABLET PO SCH ×3 (08:53→18:12)
[2018-10-26] MEDS: LEVETIRACETAM 500 MG in SODIUM CHLORIDE 0.9% 100 ML IV SCH ×2 (08:57→21:14)
[2018-10-26 10:16] LABS: BG BASE EXCESS 4.9 mmol/L (-2.0-2.0); BG CARBOXYHEMOGLOBIN 0.4 % (0.5-1.5); BG DEOXYHEMOGLOBIN 0.8 % (0.0-5.0); BG FRACTION INSPIRED OXYGEN 35; BG HCO3 ACT 28.2 mmol/L (22.0-26.0); BG METHEMOGLOBIN 0.4 % (0.0-1.5); BG OXYGEN SATURATION 99.2 % (92.0-98.5); BG OXYHEMOGLOBIN 98.4 % (94.0-97.0); BG PCO2 36.1 mmHg (35.0-45.0); BG PO2 221.7 mmHg (75.0-100.0); BG SAMPLE SITE LEFT RADIAL; BG TIDAL VOLUME(mL) 450 mL; BG TOTAL HEMOGLOBIN 8.5 g/dL (12.0-18.0); BG VENT MODE VENT - A/C; BG VENT RATE 12 set
[2018-10-26] MEDS: PANTOPRAZOLE SODIUM 40 MG/VIAL IV SCH (11:20)
[2018-10-26] MEDS: ENOXAPARIN 60MG/0.6ML SYR SUBCUT SCH ×2 (11:21→21:14)
[2018-10-26] MEDS ORDERED: FLUCONAZOLE 800 MG/400 ML IV ONE (12:00)
[2018-10-26] MEDS: FLUCONAZOLE 400MG/200ML BAG 200 ML IV NR ×3 (15:48→18:21)
[2018-10-26] MEDS ORDERED: INSULIN LISPRO 100 UNITS/ML SUBCUT SCH (18:00)
[2018-10-26] MEDS ORDERED: VANCOMYCIN 1 G PREMIX 200 ML IV SCH (18:00)
[2018-10-26] MEDS: THIAMINE HCL 100MG TABLET PO SCH (18:12)
[2018-10-26] MEDS: INSULIN LISPRO (LOW DOSE) 100 UNITS/ML SUBCUT SCH (18:35)
[2018-10-27] VITALS (28 sets, daily range): BP systolic 3–175; BP diastolic 50–113
[2018-10-27] MEDS: PIPERACILLIN/TAZ 3.375G PREMIX 50 ML IV SCH ×4 (00:01→17:06)
[2018-10-27] MEDS: BLOOD SUGAR DIAGNOSTIC STRIP TEST SCH ×4 (00:18→18:01)
[2018-10-27] MEDS: IPRATROPIUM/ALBUTEROL 0.5-3(2.5)MG/3ML NEB HHN SCH ×4 (01:13→20:28)
[2018-10-27] MEDS: PROPOFOL 10MG/ML 100ML 100 ML IV PRN (05:16)
[2018-10-27 06:23] LABS: BASOPHILS % 0.9 % (0.0-2.0); EOSINOPHILS % 0.5 % (0.0-5.0); HEMATOCRIT. 23.6 % (42.0-52.0); HEMOGLOBIN. 7.8 g/dL (14.0-18.0); LYMPHOCYTES % 29.4 % (20.0-50.0); MEAN CORPUSCULAR HEMOGLOBIN 28.1 pg (28.0-32.0); MEAN CORPUSCULAR VOLUME 85.2 fL (80.0-94.0); MEAN PLATELET VOLUME 7.1 fl (7.4-10.4); MONOCYTES % 4.3 % (2.0-8.0); NEUTROPHILS % 64.9 % (40.0-76.0); PLATELET 218 x1000/uL (130-400); RED BLOOD CELL COUNT 2.77 mill/uL (4.7-6.1); RED CELL DISTRIBUTION WIDTH 14.8 % (11.6-14.6)
[2018-10-27] MEDS: INSULIN LISPRO (LOW DOSE) 100 UNITS/ML SUBCUT SCH ×4 (06:50→18:06)
[2018-10-27 07:32] LABS: CHLORIDE 107 mEq/L (98-107)
[2018-10-27] MEDS ORDERED: LIDOCAINE HCL 1% 20ML VIAL (Pyxis) INJ ONE (08:04)
[2018-10-27 08:45] LABS: BG CARBOXYHEMOGLOBIN 0.3 % (0.5-1.5); BG DEOXYHEMOGLOBIN 1.2 % (0.0-5.0); BG FRACTION INSPIRED OXYGEN 35; BG HCO3 ACT 26.9 mmol/L (22.0-26.0); BG METHEMOGLOBIN 0.3 % (0.0-1.5); BG OXYGEN SATURATION 98.8 % (92.0-98.5); BG OXYHEMOGLOBIN 98.2 % (94.0-97.0); BG PCO2 33.6 mmHg (35.0-45.0); BG PEEP (cmH2O) 0 cmH2O; BG PH 7.522 (7.350-7.450); BG PO2 161.3 mmHg (75.0-100.0); BG SAMPLE SITE RIGHT FEMORAL; BG TIDAL VOLUME(mL) 450 mL; BG TOTAL HEMOGLOBIN 8.2 g/dL (12.0-18.0); BG VENT MODE VENT - A/C; BG VENT RATE 12 set
[2018-10-27] MEDS: THIAMINE HCL 100MG TABLET PO SCH ×2 (08:57→17:06)
[2018-10-27] MEDS: ASCORBIC ACID 500 MG TABLET PO SCH (08:57)
[2018-10-27] MEDS: MIDODRINE HCL 5MG TABLET PO SCH ×3 (08:58→17:00)
[2018-10-27] MEDS: PANTOPRAZOLE SODIUM 40 MG/VIAL IV SCH (08:58)
[2018-10-27] MEDS: MULTIVITAMINS,THER W-MINERALS TABLET PO SCH (08:58)
[2018-10-27] MEDS: ZINC SULFATE 220 MG ( 50 ) CAPSULE PO SCH (08:58)
[2018-10-27] MEDS: ENOXAPARIN 60MG/0.6ML SYR SUBCUT SCH ×2 (08:59→21:37)
[2018-10-27] MEDS: FOLIC ACID 1MG TABLET PO SCH (08:59)
[2018-10-27] MEDS: LEVETIRACETAM 500 MG in SODIUM CHLORIDE 0.9% 100 ML IV SCH ×2 (08:59→21:27)
[2018-10-27] MEDS: DEXT 10%/0.45% NACL 1,000 ML IV SCH (09:00)
[2018-10-27] MEDS ORDERED: FLUCONAZOLE 400MG/200ML PREMIX IV SCH (12:00)
[2018-10-27 12:24] LABS: BG BASE EXCESS 3.4 mmol/L (-2.0-2.0); BG CARBOXYHEMOGLOBIN 0.3 % (0.5-1.5); BG DEOXYHEMOGLOBIN 0.9 % (0.0-5.0); BG FRACTION INSPIRED OXYGEN 35; BG HCO3 ACT 26.6 mmol/L (22.0-26.0); BG METHEMOGLOBIN 0.3 % (0.0-1.5); BG OXYGEN SATURATION 99.1 % (92.0-98.5); BG OXYHEMOGLOBIN 98.5 % (94.0-97.0); BG PCO2 35.2 mmHg (35.0-45.0); BG PH 7.497 (7.350-7.450); BG PO2 207.6 mmHg (75.0-100.0); BG PRESSURE SUPPORT 8; BG SAMPLE SITE RIGHT RADIAL; BG TOTAL HEMOGLOBIN 9.1 g/dL (12.0-18.0); BG VENT MODE VENT - CPAP
[2018-10-27] MEDS: VANCOMYCIN 1 G PREMIX 200 ML IV SCH (16:24)
[2018-10-27] MEDS: FLUCONAZOLE 400MG/200ML BAG 200 ML IV SCH (18:00)
[2018-10-28] VITALS (24 sets, daily range): BP systolic 100–161; BP diastolic 44–96
[2018-10-28] MEDS: PIPERACILLIN/TAZ 3.375G PREMIX 50 ML IV SCH ×4 (00:11→17:27)
[2018-10-28] MEDS: BLOOD SUGAR DIAGNOSTIC STRIP TEST SCH ×5 (00:11→21:35)
[2018-10-28] MEDS: IPRATROPIUM/ALBUTEROL 0.5-3(2.5)MG/3ML NEB HHN SCH ×4 (01:26→20:49)
[2018-10-28] MEDS: VANCOMYCIN 1 G PREMIX 200 ML IV SCH ×2 (02:00→14:31)
[2018-10-28 06:01] LABS: BASOPHILS % 1.2 % (0.0-2.0); EOSINOPHILS % 1.3 % (0.0-5.0); HEMATOCRIT. 22.6 % (42.0-52.0); HEMOGLOBIN. 7.6 g/dL (14.0-18.0); LYMPHOCYTES % 32.9 % (20.0-50.0); MEAN CORPUSCULAR HEMOGLOBIN 28.4 pg (28.0-32.0); MEAN CORPUSCULAR VOLUME 84.9 fL (80.0-94.0); MEAN PLATELET VOLUME 7.1 fl (7.4-10.4); MONOCYTES % 3.6 % (2.0-8.0); PLATELET 214 x1000/uL (130-400); RED BLOOD CELL COUNT 2.67 mill/uL (4.7-6.1); RED CELL DISTRIBUTION WIDTH 14.9 % (11.6-14.6)
[2018-10-28 06:09] LABS: CHLORIDE 108 mEq/L (98-107)
[2018-10-28] MEDS: DEXT 10%/0.45% NACL 1,000 ML IV SCH (06:25)
[2018-10-28] MEDS ORDERED: POTASSIUM CHLORIDE 20MEQ/PACKET PO SCH (09:30)
[2018-10-28] MEDS: LEVETIRACETAM 500 MG in SODIUM CHLORIDE 0.9% 100 ML IV SCH ×2 (09:40→20:28)
[2018-10-28] MEDS: ASCORBIC ACID 500 MG TABLET PO SCH (09:41)
[2018-10-28] MEDS: ZINC SULFATE 220 MG ( 50 ) CAPSULE PO SCH (09:41)
[2018-10-28] MEDS: PANTOPRAZOLE SODIUM 40 MG/VIAL IV SCH (09:41)
[2018-10-28] MEDS: ENOXAPARIN 60MG/0.6ML SYR SUBCUT SCH ×2 (09:41→20:29)
[2018-10-28] MEDS: MIDODRINE HCL 5MG TABLET PO SCH ×3 (09:41→17:39)
[2018-10-28] MEDS: THIAMINE HCL 100MG TABLET PO SCH ×2 (09:41→17:38)
[2018-10-28] MEDS: FOLIC ACID 1MG TABLET PO SCH (09:41)
[2018-10-28] MEDS ORDERED: POTASSIUM CHLORIDE INJ 40 MEQ in DEXT 5% WATER 250 ML IV SCH (10:00)
[2018-10-28] MEDS: MULTIVITAMINS,THER W-MINERALS TABLET PO SCH (10:30)
[2018-10-28] MEDS: INSULIN LISPRO (LOW DOSE) 100 UNITS/ML SUBCUT SCH ×2 (10:37)
[2018-10-28] MEDS ORDERED: INSULIN LISPRO 100 UNITS/ML SUBCUT SCH (12:50)
[2018-10-28] MEDS ORDERED: MAGNESIUM 1 G PREMIX 100 ML IV SCH (13:30)
[2018-10-28] MEDS: FLUCONAZOLE 400MG/200ML BAG 200 ML IV SCH (14:04)
[2018-10-28] MEDS: INSULIN LISPRO 100 UNITS/ML SUBCUT SCH ×3 (14:30→20:31)
[2018-10-29] VITALS (12 sets, daily range): BP systolic 77–137; BP diastolic 43–89
[2018-10-29] MEDS: PIPERACILLIN/TAZ 3.375G PREMIX 50 ML IV SCH ×5 (00:26→23:33)
[2018-10-29] MEDS: IPRATROPIUM/ALBUTEROL 0.5-3(2.5)MG/3ML NEB HHN SCH ×4 (00:34→21:44)
[2018-10-29] MEDS: VANCOMYCIN 1 G PREMIX 200 ML IV SCH (02:23)
[2018-10-29] MEDS: BLOOD SUGAR DIAGNOSTIC STRIP TEST SCH ×4 (06:49→20:58)
[2018-10-29] MEDS: INSULIN LISPRO 100 UNITS/ML SUBCUT SCH ×4 (07:04→22:30)
[2018-10-29 07:10] LABS: BASOPHILS % 0.7 % (0.0-2.0); EOSINOPHILS % 0.5 % (0.0-5.0); HEMATOCRIT. 24.6 % (42.0-52.0); HEMOGLOBIN. 8.1 g/dL (14.0-18.0); LYMPHOCYTES % 17.4 % (20.0-50.0); MEAN CORPUSCULAR HEMOGLOBIN 28.1 pg (28.0-32.0); MEAN CORPUSCULAR VOLUME 85.4 fL (80.0-94.0); MEAN PLATELET VOLUME 7.3 fl (7.4-10.4); MONOCYTES % 3.4 % (2.0-8.0); PLATELET 274 x1000/uL (130-400); RED BLOOD CELL COUNT 2.88 mill/uL (4.7-6.1); RED CELL DISTRIBUTION WIDTH 14.9 % (11.6-14.6)
[2018-10-29 07:34] LABS: CHLORIDE 111 mEq/L (98-107)
[2018-10-29] MEDS: PANTOPRAZOLE SODIUM 40 MG/VIAL IV SCH (09:26)
[2018-10-29] MEDS: LEVETIRACETAM 500 MG in SODIUM CHLORIDE 0.9% 100 ML IV SCH ×2 (09:28→21:19)
[2018-10-29] MEDS: ENOXAPARIN 60MG/0.6ML SYR SUBCUT SCH ×2 (09:28→20:57)
[2018-10-29] MEDS: FOLIC ACID 1MG TABLET PO SCH (09:28)
[2018-10-29] MEDS: THIAMINE HCL 100MG TABLET PO SCH ×2 (09:28→18:10)
[2018-10-29] MEDS: ASCORBIC ACID 500 MG TABLET PO SCH (09:28)
[2018-10-29] MEDS: MIDODRINE HCL 5MG TABLET PO SCH ×3 (09:28→18:10)
[2018-10-29] MEDS: ZINC SULFATE 220 MG ( 50 ) CAPSULE PO SCH (09:28)
[2018-10-29] MEDS: MULTIVITAMINS,THER W-MINERALS TABLET PO SCH (09:28)
[2018-10-29] MEDS: FLUCONAZOLE 400MG/200ML BAG 200 ML IV SCH (13:29)
[2018-10-30] VITALS: BP 106/61
[2018-10-30] MEDS: IPRATROPIUM/ALBUTEROL 0.5-3(2.5)MG/3ML NEB HHN SCH ×4 (02:20→20:25)
[2018-10-30 04:00] VITALS: BP 126/68
[2018-10-30] MEDS: PIPERACILLIN/TAZ 3.375G PREMIX 50 ML IV SCH ×3 (05:06→18:23)
[2018-10-30] MEDS: BLOOD SUGAR DIAGNOSTIC STRIP TEST SCH ×4 (06:33→20:40)
[2018-10-30] MEDS: INSULIN LISPRO 100 UNITS/ML SUBCUT SCH ×4 (06:42→21:21)
[2018-10-30 06:43] LABS: CHLORIDE 110 mEq/L (98-107)
[2018-10-30 07:18] LABS: HEMATOCRIT. 26.3 % (42.0-52.0); HEMOGLOBIN. 8.9 g/dL (14.0-18.0); MEAN CORPUSCULAR HEMOGLOBIN 29.1 pg (28.0-32.0); MEAN CORPUSCULAR VOLUME 85.7 fL (80.0-94.0); MEAN PLATELET VOLUME 7.7 fl (7.4-10.4); PLATELET 299 x1000/uL (130-400); RED BLOOD CELL COUNT 3.07 mill/uL (4.7-6.1); RED CELL DISTRIBUTION WIDTH 14.8 % (11.6-14.6)
[2018-10-30 08:00] VITALS: BP 138/84
[2018-10-30] MEDS: PANTOPRAZOLE SODIUM 40 MG/VIAL IV SCH (08:36)
[2018-10-30] MEDS: MULTIVITAMINS,THER W-MINERALS TABLET PO SCH (08:36)
[2018-10-30] MEDS: MIDODRINE HCL 5MG TABLET PO SCH ×3 (08:36→18:13)
[2018-10-30] MEDS: ENOXAPARIN 60MG/0.6ML SYR SUBCUT SCH ×2 (08:36→20:39)
[2018-10-30] MEDS: FOLIC ACID 1MG TABLET PO SCH (08:37)
[2018-10-30] MEDS: LEVETIRACETAM 500 MG in SODIUM CHLORIDE 0.9% 100 ML IV SCH ×2 (08:37→21:02)
[2018-10-30] MEDS: ZINC SULFATE 220 MG ( 50 ) CAPSULE PO SCH (08:37)
[2018-10-30] MEDS: ASCORBIC ACID 500 MG TABLET PO SCH (08:37)
[2018-10-30] MEDS ORDERED: VANCOMYCIN 750 MG PREMIX 150 ML IV SCH (10:00)
[2018-10-30 11:12] LABS: PLATELET ESTIMATE NORMAL
[2018-10-30 12:23] VITALS: BP 136/88
[2018-10-30] MEDS: FLUCONAZOLE 400MG/200ML BAG 200 ML IV SCH (14:21)
[2018-10-30 16:28] VITALS: BP 158/49
[2018-10-30] MEDS ORDERED: INSULIN LISPRO 100 UNITS/ML SUBCUT SCH (19:00)
[2018-10-30 20:00] VITALS: BP 147/78
[2018-10-31] VITALS: BP 114/67
[2018-10-31] MEDS: PIPERACILLIN/TAZ 3.375G PREMIX 50 ML IV SCH ×5 (00:16→23:18)
[2018-10-31] MEDS: IPRATROPIUM/ALBUTEROL 0.5-3(2.5)MG/3ML NEB HHN SCH ×3 (01:45→20:52)
[2018-10-31 04:00] VITALS: BP 108/67
[2018-10-31] MEDS: BLOOD SUGAR DIAGNOSTIC STRIP TEST SCH ×4 (06:22→21:51)
[2018-10-31] MEDS: PANTOPRAZOLE SODIUM 40 MG/VIAL IV SCH (08:49)
[2018-10-31] MEDS: ZINC SULFATE 220 MG ( 50 ) CAPSULE PO SCH (08:49)
[2018-10-31] MEDS: FOLIC ACID 1MG TABLET PO SCH (08:50)
[2018-10-31] MEDS: MULTIVITAMINS,THER W-MINERALS TABLET PO SCH (08:50)
[2018-10-31] MEDS: ASCORBIC ACID 500 MG TABLET PO SCH (08:50)
[2018-10-31] MEDS: ENOXAPARIN 60MG/0.6ML SYR SUBCUT SCH ×2 (08:51→21:51)
[2018-10-31] MEDS: MIDODRINE HCL 5MG TABLET PO SCH ×3 (08:52→17:39)
[2018-10-31] MEDS: INSULIN LISPRO 100 UNITS/ML SUBCUT SCH ×4 (08:59→22:31)
[2018-10-31] MEDS: LEVETIRACETAM 500 MG in SODIUM CHLORIDE 0.9% 100 ML IV SCH ×2 (09:02→21:50)
[2018-10-31] MEDS ORDERED: INSULIN GLARGINE UD 100 UNITS/ML SYR SUBCUT SCH (10:00)
[2018-10-31 12:00] VITALS: BP 132/94
[2018-10-31] MEDS ORDERED: INSULIN GLARGINE UD 100 UNITS/ML SYR SUBCUT NR (12:30)
[2018-10-31] MEDS: FLUCONAZOLE 400MG/200ML BAG 200 ML IV SCH (14:14)
[2018-10-31 16:00] VITALS: BP 132/94
[2018-10-31 20:00] VITALS: BP 150/93
[2018-11-01] VITALS: BP 107/75
[2018-11-01] MEDS: IPRATROPIUM/ALBUTEROL 0.5-3(2.5)MG/3ML NEB HHN SCH ×3 (01:21→14:23)
[2018-11-01 04:00] VITALS: BP 150/113
[2018-11-01] MEDS: PIPERACILLIN/TAZ 3.375G PREMIX 50 ML IV SCH ×2 (05:48→12:08)
[2018-11-01] MEDS: BLOOD SUGAR DIAGNOSTIC STRIP TEST SCH ×3 (06:24→16:41)
[2018-11-01] MEDS: INSULIN LISPRO 100 UNITS/ML SUBCUT SCH ×3 (06:44→17:05)
[2018-11-01 08:00] VITALS: BP 112/66
[2018-11-01] MEDS: ENOXAPARIN 60MG/0.6ML SYR SUBCUT SCH (08:38)
[2018-11-01] MEDS: PANTOPRAZOLE SODIUM 40 MG/VIAL IV SCH (08:39)
[2018-11-01] MEDS: FOLIC ACID 1MG TABLET PO SCH (08:39)
[2018-11-01] MEDS: MULTIVITAMINS,THER W-MINERALS TABLET PO SCH (08:39)
[2018-11-01] MEDS: ASCORBIC ACID 500 MG TABLET PO SCH (08:39)
[2018-11-01] MEDS: ZINC SULFATE 220 MG ( 50 ) CAPSULE PO SCH (08:39)
[2018-11-01] MEDS: MIDODRINE HCL 5MG TABLET PO SCH ×3 (08:39→16:42)
[2018-11-01] MEDS: LEVETIRACETAM 500 MG in SODIUM CHLORIDE 0.9% 100 ML IV SCH (09:01)
[2018-11-01] MEDS ORDERED: INSULIN GLARGINE UD 100 UNITS/ML SYR SUBCUT SCH (10:00)
[2018-11-01 12:00] VITALS: BP 129/84
[2018-11-01] MEDS: FLUCONAZOLE 400MG/200ML BAG 200 ML IV SCH (14:38)
[2018-11-01 16:00] VITALS: BP 135/55
[2018-11-01] MEDS ORDERED: FOLI-43 PO (18:07)
[2018-11-01] MEDS ORDERED: ASCO500T20 PO (18:07)
[2018-11-01] MEDS ORDERED: LANTUSUD SUBCUT (18:07)
[2018-11-02 10:10] LABS: HIV SCREEN 4G Non Reactive (Non Reactive)
== END 2018-11-01 19:40 | disposition left against medical advice (07) | DRG 720 ==
LOC: ER 15:55 → CVICU 18:01 → EDBEDREQ 18:07 → EDBEDREQTM 18:07 → EDBEDREQ 18:08 → ENRESERV 10-25 07:08 → CANRESERV 10-25 07:08 → ENRESERV 10-25 18:40 → 6EST 10-29 03:25
PROVIDERS: ADMIT Internal Medicine; ATTEND Internal Medicine
PROC: 5A1945Z Respiratory Ventilation, 24-96 Consecutive Hours (ICD-10-PCS; principal; 2018-10-29)
PROC: 0BH18EZ Insertion of Endotracheal Airway into Trachea, Via Natural or Artificial Opening Endoscopic (ICD-10-PCS; 2018-10-29)
PROC: 0JBG0ZZ Excision of Right Lower Arm Subcutaneous Tissue and Fascia, Open Approach (ICD-10-PCS; 2018-10-29)
PROC: 02H633Z Insertion of Infusion Device into Right Atrium, Percutaneous Approach (ICD-10-PCS; 2018-10-29)
PROC: B244YZZ Ultrasonography of Right Heart using Other Contrast (ICD-10-PCS; 2018-10-29)
DX: A41.9 Sepsis, unspecified organism (principal); J96.00 Acute respiratory failure, unspecified whether with hypoxia or hypercapnia; J69.0 Pneumonitis due to inhalation of food and vomit; R65.21 Severe sepsis with septic shock; G92 Toxic encephalopathy; E43 Unspecified severe protein-calorie malnutrition; R64 Cachexia; L89.219 Pressure ulcer of right hip, unspecified stage; T50.901A Poisoning by unspecified drugs, medicaments and biological substances, accidental (unintentional), initial encounter; N13.30 Unspecified hydronephrosis; B37.2 Candidiasis of skin and nail; D64.9 Anemia, unspecified; L89.013 Pressure ulcer of right elbow, stage 3; E87.6 Hypokalemia; E83.42 Hypomagnesemia; F15.129 Other stimulant abuse with intoxication, unspecified; F31.30 Bipolar disorder, current episode depressed, mild or moderate severity, unspecified; E10.649 Type 1 diabetes mellitus with hypoglycemia without coma; G40.901 Epilepsy, unspecified, not intractable, with status epilepticus; I10 Essential (primary) hypertension; I82.621 Acute embolism and thrombosis of deep veins of right upper extremity; J98.11 Atelectasis; K52.9 Noninfective gastroenteritis and colitis, unspecified; Z53.21 Procedure and treatment not carried out due to patient leaving prior to being seen by health care provider; L02.31 Cutaneous abscess of buttock; F11.10 Opioid abuse, uncomplicated; Z68.1 Body mass index [BMI] 19.9 or less, adult; Z78.1 Physical restraint status; Z86.718 Personal history of other venous thrombosis and embolism; Z87.440 Personal history of urinary (tract) infections; Z91.19 Patient's noncompliance with other medical treatment and regimen; Z79.4 Long term (current) use of insulin; Z79.899 Other long term (current) drug therapy; Y92.89 Other specified places as the place of occurrence of the external cause
CPT/HCPCS: 31500; 36415; 36569; 36600; 71045; 76937; 80048; 80202; 80305; 80307; 80329; 82375; 82805; 82962; 83605; 83735; 83880; 84100; 84132; 84134; 84145; 84478; 84484; 87070; 87106; 87107; 87389; 92610; 93005; 93970; 94002; 94003; 94640; 96365; 96375; 97161; 99291; A6261; C1725; C9113; J0330; J0696; J1450; J1650; J1815; J1953; J2060; J2250; J2405; J2543; J2704; J3370; J3475; J3480; J3490; J7030; J7040; J7050; J7060; J7620